=== PATIENT | female | born 1925 | race Caucasian/White ===

== ENCOUNTER → 2016-11-29 | Outpatient (CLI) | payer MEDICARE ==
[2016-11-29 09:10] LABS: MEAN CORPUSCULAR HEMOGLOBIN 29.9 PG (26.0-34.0); MEAN CORPUSCULAR HGB CONC 32.6 g/dL (31.0-37.0); MEAN CORPUSCULAR VOLUME 92 FL (80-100); MEAN PLATELET VOLUME 9.4 FL (6.0-9.5); PLATELET COUNT 147 10^3uL (150-450); WHITE BLOOD COUNT 5.05 10^3uL (4.0-11.0)
[2016-11-29 09:34] LABS: BAND NEUTROPHILS % 11 % (0-6); EOSINOPHILS % 4 % (0-4); LYMPHOCYTES # 1.6 #; MONOCYTES # 0.8 #; MONOCYTES % 15 % (3-11); RBC MORPH NORMAL (NORMAL); SEGMENTED NEUTROPHILS % 36 % (51-67); TOTAL CELLS COUNTED 100
[2016-11-29 10:14] LABS: ALBUMIN 3.8 g/dL (3.4-5.0); ANION GAP 11.3 MEQ/L (3-15); TOTAL PROTEIN 7.7 g/dL (6.4-8.5)
== END ==
LOC: LAB 08:56
PROVIDERS: ATTEND Internal Medicine
DX: Z00.00 Encounter for general adult medical examination without abnormal findings (principal); K21.0 Gastro-esophageal reflux disease with esophagitis; I10 Essential (primary) hypertension; I50.42 Chronic combined systolic (congestive) and diastolic (congestive) heart failure; I48.2 Chronic atrial fibrillation; M1A.39X0 Chronic gout due to renal impairment, multiple sites, without tophus (tophi)
CPT/HCPCS: 36415; 80048; 80053; 80061; 82306; 84443; 84550; 85025

== ENCOUNTER → 2016-12-19 | Outpatient (CLI) | payer MEDICARE ==
[~2016-12-19] MED LIST: ACET325T38 PO; ASPI-345 PO; CALC500T24; CALC500T35 PO; DABI150C PO; DGX.125T PO; DIPH25CA79 PO; FURO-125 PO; LEVO25TA9 PO; LEVO50TA10 PO; LSNP10T PO; MTP50T PO; NF-VITD400 PO; POTA-57 PO; RIVA15TA2 PO; RIVA20TA PO; SIMV20TA PO; WARF2.5T82 PO; WRF2.5T PO
[2016-12-19 09:14] LABS: BASOPHILS % (AUTO) 2 % (0-2); EOSINOPHILS # (AUTO) 0.2 10^3uL; EOSINOPHILS % (AUTO) 4 % (0-4); LYMPHOCYTES # (AUTO) 1.3 X10^3; MEAN CORPUSCULAR HEMOGLOBIN 29.9 PG (26.0-34.0); MEAN CORPUSCULAR HGB CONC 32.4 g/dL (31.0-37.0); MEAN CORPUSCULAR VOLUME 92 FL (80-100); MEAN PLATELET VOLUME 9.6 FL (6.0-9.5); MONOCYTES # (AUTO) 0.5 X10^3; MONOCYTES % (AUTO) 11 % (3-11); NEUTROPHILS # (AUTO) 2.4 X10^3; NEUTROPHILS % (AUTO) 55 % (51-67); PLATELET COUNT 165 10^3uL (150-450); WHITE BLOOD COUNT 4.44 10^3uL (4.0-11.0)
== END ==
LOC: LAB 08:59
PROVIDERS: ATTEND Internal Medicine
DX: D72.825 Bandemia (principal)
CPT/HCPCS: 36415; 85025